=== PATIENT | female | born 1950 | race Caucasian/White ===

== ENCOUNTER 2018-11-04 17:43 | Emergency (ER) | payer OTHER, BC, MEDICARE ==
[2018-11-04 18:04] VITALS: BP 153/98; PULSE 103; TEMP 98; BMI 27.8
--- NOTE | 2018-11-04 18:04 | PDOC ---
Rapid Medical Evaluation Medical Evaluation: I have performed a brief in-person evaluation of this patient. The patient presents with a chief complaint of: Dog pulled patient's R shoulder today Pertinent physical exam findings: R arm in sling (placed by EMS), does not appear dislocated I have ordered the following: Percocet, xray The patient will proceed to the ED for further evaluation. 11/04/18 17:57
--- NOTE | 2018-11-04 19:43 | PDOC ---
History of Present Illness - General Chief Complaint: Injury Stated Complaint: FALL Time Seen by Provider: 11/04/18 17:59 - History of Present Illness Initial Comments: 11/04/18 19:39 67-year-old female with a past medical history significant for fibromyalgia dyslipidemia diabetes depression presents for evaluation of right shoulder pain after a fall while she was walking her dog. She states she had her head on grass however there is no loss of consciousness post injury nausea vomiting or visual changes. She has no headache. Past History - Past Medical History Allergies/Adverse Reactions: Allergies Allergy/AdvReac Type Severity Reaction Status Date / Time No Known Allergies Allergy Verified 11/04/18 18:04 Home Medications: Ambulatory Orders Oxycodone HCl/Acetaminophen [Percocet 5-325 mg Tablet] 1 tab PO Q6H PRN #20 tablet MDD 4 11/04/18 COPD: No Diabetes: Yes Hypercholesterolemia: Yes Other medical history: HARD OF HEARING - Surgical History Appendectomy: Yes - Suicide/Smoking/Psychosocial Hx Smoking History: Never smoked Information on smoking cessation initiated: No Hx Alcohol Use: No Drug/Substance Use Hx: No Review of Systems - Review of Systems ABD/GI: No: Nausea, Vomiting Musculoskeletal: Yes: Joint Pain Neurological: No: Headache *Physical Exam - Vital Signs Last Vital Signs Temp Pulse Resp BP Pulse Ox 98 F 103 H 19 153/98 98 11/04/18 18:01 11/04/18 18:01 11/04/18 18:01 11/04/18 18:01 11/04/18 18:01 - Physical Exam Comments: 11/04/18 19:41 Right shoulder skin color and temperature are normal. There is tenderness about the proximal humerus. She is unable to actively move her shoulder. She has no gross sensorimotor deficits in the right upper extremity. Moderate Sedation - Procedure Monitoring Vital Signs: Procedure Monitoring Vital Signs Temperature 98 F 11/04/18 18:01 Pulse Rate 103 H 11/04/18 18:01 Respiratory Rate 19 11/04/18 18:01 Blood Pressure 153/98 11/04/18 18:01 O2 Sat by Pulse Oximetry (%) 98 11/04/18 18:01 ED Treatment Course - Medications Given in the ED: ED Medications Discontinued Medications Generic Name Dose Route Start Last Admin Trade Name Freq PRN Reason Stop Dose Admin Oxycodone/Acetaminophen 1 combo 11/04/18 18:04 11/04/18 18:27 Percocet 5/325 - PO 11/04/18 18:05 1 combo ONCE ONE Administration Medical Decision Making - Medical Decision Making 11/04/18 19:41 X-rays of the right shoulder shows surgical neck fracture of the humerus. Patient was placed in a sling and told follow-up with orthopedics given a prescription for Percocet. I have discussed the x-ray findings with her as well as the treatment plan. Patient and her are in agreement. Patient is totally asymptomatic she basically tapped her head on the grass as she fell her shoulder took most of the force. No reason for a CAT scan. *DC/Admit/Observation/Transfer Diagnosis at time of Disposition: Fracture, shoulder - Discharge Dispostion Disposition: HOME Condition at time of disposition: Stable Decision to Admit order: No - Prescriptions Prescriptions: Oxycodone HCl/Acetaminophen [Percocet 5-325 mg Tablet] 1 tab PO Q6H PRN #20 tablet MDD 4 PRN Reason: Pain - Referrals Referrals: Ramona Jay MD [Primary Care Provider] - Lazaro Ledbetter DO [Staff Physician] - - Patient Instructions Printed Discharge Instructions: DI for Shoulder Fracture, How to Use a Sling Additional Instructions: Please use the sling at all times even to sleep in. However, multiple times a day about 5-6 she should come out of the sling and allow your elbow to move freely. Flex and extend and rotate. Do not try to move her shoulder. Follow-up with orthopedic surgery in 1-2 days for further evaluation and treatment options. Please take Percocet as directed and return to the emergency room for worsening symptoms. - Post Discharge Activity
== END 2018-11-04 19:56 | disposition home or self-care (01) ==
LOC: JERFT 17:43
DX: S42.91XA Fracture of right shoulder girdle, part unspecified, initial encounter for closed fracture (principal); W18.39XA Other fall on same level, initial encounter; Y93.89 Activity, other specified; Y92.89 Other specified places as the place of occurrence of the external cause
CPT/HCPCS: 73030-TC-RT-FY; 99281-25